=== PATIENT | male | born 1990 | race Caucasian/White ===

== ENCOUNTER 2017-12-22 20:37 | Emergency (ER) | payer SELFPAY ==
[2017-12-22] MEDS ORDERED: IBUPROFEN 400 MG TABLET (FP) PO ONE ×2 (21:26→21:41)
--- NOTE | 2017-12-22 21:27 | PDOC ---
History of Present Illness - General Chief Complaint: Cold Symptoms Stated Complaint: LEG/ARM/HEAD PAIN Time Seen by Provider: 12/22/17 21:25 History Source: Patient - History of Present Illness Timing/Duration: reports: other Severity: reports: moderate Associated Symptoms: reports: cough, fever/chills, muscle aches. denies: chest pain/soreness, earache, nasal congestion, shortness of breath, sore throat, wheezing Past History - Past Medical History Allergies/Adverse Reactions: Allergies Allergy/AdvReac Type Severity Reaction Status Date / Time No Known Allergies Allergy Verified 12/22/17 21:22 Home Medications: Ambulatory Orders Ibuprofen [Motrin -] 2 tab PO Q6H #30 tablet 12/22/17 COPD: No Other medical history: Pt denies - Suicide/Smoking/Psychosocial Hx Smoking History: Current some day smoker Have you smoked in the past 12 months: No Number of Cigarettes Smoked Daily: 3 Information on smoking cessation initiated: No Hx Alcohol Use: No Drug/Substance Use Hx: No Substance Use Type: None Review of Systems - Review of Systems Constitutional: Yes: Chills, Fever, Malaise Respiratory: Yes: Cough. No: Shortness of Breath Cardiac (ROS): No: Chest Pain ABD/GI: No: Diarrhea, Nausea, Vomiting Neurological: Yes: Headache. No: Dizziness *Physical Exam - Vital Signs Last Vital Signs Temp Pulse Resp BP Pulse Ox 102.2 F H 111 H 20 133/87 98 12/22/17 21:22 12/22/17 21:22 12/22/17 21:22 12/22/17 21:22 12/22/17 21:22 - Physical Exam General Appearance: Yes: Appropriately Dressed. No: Apparent Distress HEENT: positive: Normal ENT Inspection, Normal Voice. negative: Scleral Icterus (R), Scleral Icterus (L) Neck: positive: Supple. negative: Lymphadenopathy (R), Lymphadenopathy (L) Respiratory/Chest: positive: Lungs Clear, Normal Breath Sounds. negative: Respiratory Distress Cardiovascular: positive: S1, S2, Tachycardia Gastrointestinal/Abdominal: positive: Soft. negative: Tender Musculoskeletal: negative: CVA Tenderness Integumentary: positive: Dry, Warm Neurologic: positive: Fully Oriented, Alert, Normal Mood/Affect Medical Decision Making - Medical Decision Making 12/22/17 21:26 27 yo M, no sig hx, here w/ body aches w/ AGUIRRE, dry cough and fever x 5 days. No n /v/d, abd pain or rash. Not taking anything OTC. No recent travel or sick contacts See exam Viral syndrome Febrile to 102 F and tachy to 111, but well zoila in NAD w/ unremarkable exam otherwise Possibly flu though unlikely give current season, outside tamiflu window -motrin -cxr -reassess 12/22/17 22:10 CXR neg. Rpt temp same but HR improved to 100. Tylenol given. Pt declines waiting further in ED. Dc w/ supportive tx *DC/Admit/Observation/Transfer Diagnosis at time of Disposition: Viral syndrome - Discharge Dispostion Disposition: HOME Condition at time of disposition: Improved - Prescriptions Prescriptions: Ibuprofen [Motrin -] 2 tab PO Q6H #30 tablet - Referrals - Patient Instructions Printed Discharge Instructions: DI for Viral Syndrome Additional Instructions: Es muy probable que tengas gil enfermedad viral que mejorar con el tiempo Descanse, tome lquidos y tome motrin o tylenol fot dolor / fiebre Por favor, sigue con tu PMD segn sea necesari0 Print Language: GERMAN - Post Discharge Activity Forms/Work/School Notes: Back to Work
[2017-12-22 21:36] VITALS: BP 133/87; TEMP 102.2; BMI 31.5
[2017-12-22] MEDS ORDERED: ACETAMINOPHEN 325 MG TABLET (FP) PO ONE (22:28)
[2017-12-22] MEDS ORDERED: ACETAMINOPHEN 325 MG TABLET (FP) ONE (22:34)
[2017-12-22 22:37] VITALS: PULSE 100
== END 2017-12-22 22:39 | disposition home or self-care (01) ==
LOC: JERFT 20:37
DX: B34.9 Viral infection, unspecified (principal)
CPT/HCPCS: 71046-TC-FY; 99281-25